=== PATIENT | male | born 2000 | race American Indian/Alaskan Native ===

== ENCOUNTER 2021-12-10 21:03 | Emergency (ER) | payer SELFPAY | END 2021-12-10 22:37 | disposition home or self-care (01) | LOC: JP.ED 21:03 | DX: R68.84 Jaw pain (principal); F17.210 Nicotine dependence, cigarettes, uncomplicated | CPT/HCPCS: 70110; 70110-26; 99283 ==

== ENCOUNTER 2022-11-03 11:06 | Emergency (ER) | payer SELFPAY ==
[2022-11-03] MEDS ORDERED: Diphtheria,Pertussis(Acell),Tetanus Vaccine 0.5 ML Syringe IM ONE (11:47)
== END 2022-11-03 12:00 | disposition home or self-care (01) ==
LOC: JP.ED 11:06
DX: Z48.00 Encounter for change or removal of nonsurgical wound dressing (principal); F17.210 Nicotine dependence, cigarettes, uncomplicated; Z23 Encounter for immunization
CPT/HCPCS: 90471; 90715; 99283-25